=== PATIENT | female | born 1960 | race Caucasian/White ===

== ENCOUNTER → 2024-12-02 13:06 | Outpatient (REF) | payer BC, SELFPAY | LOC: RAD 13:06 | PROVIDERS: ATTENDING PHYSICIAN Surgery Vascular Surgery; FAMILY PHYSICIAN Family Medicine | DX: I77.1 Stricture of artery (principal) | CPT/HCPCS: 75635; Q9967 ==

== ENCOUNTER 2025-06-10 12:43 | Inpatient (IN) | payer BC, SELFPAY ==
[2025-06-02 10:22] VITALS: BMI 24.0
[2025-06-02 10:54] LABS: Hematocrit 42.7 % (37.0-47.0); Hemoglobin 14.4 g/dL (12.0-16.0); Mean Corp Hgb Conc. 33.7 g/dL (33.0-37.0); Mean Corpuscular Volume 96.2 fL (81.0-99.0); Nucleated Red Blood Cells % 0 %; Platelet Count 371 10^3/uL (130-400); Red Cell Dist. Width 11.9 % (11.5-14.5)
[2025-06-02 10:59] LABS: INR 1.09; PT 14.2 Sec (11.4-14.6)
[2025-06-02 11:00] LABS: APTT 33.8 Sec (23.4-35.0)
[2025-06-02 12:11] LABS: Blood Urea Nitrogen 10 mg/dl (7-17); Calcium 9.5 mg/dl (8.4-10.2); Carbon Dioxide 24 mmol/L (22-30); Chloride 104 mmol/L (98-107); Estimated Creatinine Clearance 84 ml/min; Glucose 106 mg/dl (70-99); Potassium 4.2 mmol/L (3.5-5.1); Sodium 136 mmol/L (135-145); eGFR > 60.00
[2025-06-10] VITALS (8 sets, daily range): BP systolic 98–160; BP diastolic 51–72; BMI 24.5
--- NOTE | 2025-06-10 08:14 | HP.FOC2 ---
Focused History & Physical
Chief Complaint
HPI:
Chief Complaint: Iliac artery stenosis, left
HPI / Indication for Planned Procedure: This is a 65-year-old female with significant past medical history for hypertension, coronary disease, peripheral arterial disease, and hyperlipidemia who presents to [facility] for
scheduled aortoiliac stent grafting with Dr. Francisco Miller III. Patient denies recent illness, trauma, or hospitalization. Denies fever, chills, cough, nausea, vomiting, abdominal pain, chest pain, or shortness of breath. Reports she is at her
baseline health. She was evaluated by her grain farmworker Dr. Gretchen Sosa on 04/30/2025 and was cleared as acceptable cardiovascular risk for this procedure.
Relevant Past Medical History: Other (hypertension, coronary disease, peripheral arterial disease, and hyperlipidemia)
Relevant Social History: Tobacco Use (Active smoker roughly 10 cigarettes/day)
Relevant Family History: Negative
Relevant Past Surgical History: Negative
Review of Systems
Review of Pertinent Systems: All Systems Negative
Medication
See Medication form for detailed medications: Yes
Medication List (including Herbals & OTC):
aspirin 81 mg tablet,delayed release 81 mg PO DAILY 05/30/25
atorvastatin 80 mg tablet 80 mg PO DAILY 05/30/25
diltiazem HCl 240 mg tablet,extended release 24 hr 240 mg PO DAILY 05/30/25
ezetimibe 10 mg tablet 10 mg PO DAILY 05/30/25
losartan 100 mg tablet 100 mg PO DAILY 05/30/25
nitroglycerin 0.4 mg sublingual tablet 0.4 mg sublingual Q5-15M PRN chest pain/angina 05/30/25
Medications Reviewed: Yes
Allergies and Reactions
Patient has Allergies: No
Noted Allergies and Reactions:
Allergy/AdvReac Type Severity Reaction Status Date / Time
No Known Allergies Allergy Verified 05/30/25 08:23
Pertinent Physical Exam
All Other Systems: Negative
Head/Neck: Normal
Lungs: Normal (Bilateral lungs clear to auscultation)
Heart: Normal (S1, S2, regular rate and rhythm, no murmur)
Abdomen: Normal (Nontender and nondistended)
Neurological: Normal
Diagnosis / Assessment
Assessment: 65-year-old female with significant aortoiliac arterial disease
Plan / Procedure
Plan: Will proceed with scheduled aortoiliac stenting with Dr. Francisco Miller III
Anesthesia/Sedation to be done by Anesthesia Provider: Yes
[2025-06-10] MEDS: NSS 500 IV (08:20)
[2025-06-10] MEDS: BACTROBAN NASAL 1 GRAM NASAL (08:20)
[2025-06-10] MEDS: PERIDEX 0.12% ORAL RINSE 15 ML PO (08:21)
--- NOTE | 2025-06-10 09:40 | W.SUR.PREOP ---
Pre-Operative Surgical Note
-
I have examined this patient prior to the performance of the scheduled procedure.
The patient's condition is unchanged from the time of the current History and
Physical and the patient is able to undergo the scheduled procedure.
[2025-06-10 11:28] LABS: ACT-LR - POC 218 Seconds (116-155)
[2025-06-10 11:38] LABS: ACT-LR - POC 263 Seconds (116-155)
[2025-06-10 11:48] LABS: ACT-LR - POC 271 Seconds (116-155)
[2025-06-10] MEDS: ZOFRAN 4 MG IV (12:38)
[2025-06-10 13:06] LABS: Hematocrit 34.9 % (37.0-47.0); Hemoglobin 11.4 g/dL (12.0-16.0); Mean Corp Hgb Conc. 32.7 g/dL (33.0-37.0); Mean Corpuscular Volume 101.5 fL (81.0-99.0); Platelet Count 265 10^3/uL (130-400); Red Cell Dist. Width 12.2 % (11.5-14.5)
--- NOTE | 2025-06-10 13:55 | PTCARENOTE ---
Received pt from PACU at 13:30. Pt aaox3, able to make needs known. B/L groin access sites intact with surgical glue. B/L pedal pulses present/palpable. BLLE warm with adequate capillary refill. NSR on monitor, HR 50-60s. R radial a-line in place,
BP stable. Orders to keep SBP within 100-165. Lungs clear, SaO2 98% on RA. Indwelling warner in place draining clear yellow urine. Orders to keep HOB flat for 2hr. Pt resting comfortably in bed at this time. VSS. Call raygoza and belongings within
reach. Care ongoing.
[2025-06-10] MEDS: NSS 1000 IV (13:56)
--- NOTE | 2025-06-10 15:16 | CON.INTV ---
Consultation
Consultation Request
Date/Time Consultation Requested: 06/10/2025
Date/Time Consultation Performed: 06/10/2024
Requesting Provider: Dr. Miller
Performing Provider: Dr. Sandeep Martinez
Reason for Consultation: Status post aortoiliac stent grafting
Medical History
-
History of Present Illness:
65-year-old woman with past medical history significant for hypertension, coronary disease, peripheral arterial disease, hyperlipidemia, admitted to the hospital to undergo aortoiliac stent grafting.
Procedure underwent without complications 06/10/2025.
Past Medical History
Past Medical History: Other (See assessment and plan)
Social History
Tobacco: Smoker (10 cigarettes/day)
Alcohol: None
Drug: None
Personal: Single
Family History
Family History: Reviewed & Not Pertinent
Allergies / Home Medications
Allergies
Allergy/AdvReac Type Severity Reaction Status Date / Time
No Known Allergies Allergy Verified 06/10/25 08:24
Home Medications
�Medication �Instructions �Recorded �Confirmed �Last Taken �Type
aspirin 81 mg tablet,delayed 81 mg PO DAILY 05/30/25 06/10/25 06/10/25 06:00 History
release
atorvastatin 80 mg tablet 80 mg PO DAILY 05/30/25 06/10/25 06/10/25 06:00 History
diltiazem HCl 240 mg 240 mg PO DAILY 05/30/25 06/10/25 06/10/25 06:00 History
tablet,extended release 24 hr
ezetimibe 10 mg tablet 10 mg PO DAILY 05/30/25 06/10/25 06/08/25 06:00 History
losartan 100 mg tablet 100 mg PO DAILY 05/30/25 06/10/25 06/09/25 06:00 History
nitroglycerin 0.4 mg sublingual 0.4 mg sublingual Q5-15M PRN chest 05/30/25 05/30/25 Unknown History
tablet pain/angina
Review of Systems
-
History Source: Patient
All other systems: Negative unless noted
Vitals / Labs / Diagnostic Testing
Vital Signs
Temp Pulse Resp BP Pulse Ox
97.9 F 59 13 104/51 98
06/10/25 13:00 06/10/25 13:15 06/10/25 13:15 06/10/25 13:15 06/10/25 13:15
Lab Data
06/10/25 12:41
Diagnostic Testing:
Physical Exam
-
HEENT: Normocephalic
Cardiovascular: S1/S2
Respiratory: Non-Labored Respirations
GI: Soft and Non Distended
Neurology: Awake
Skin: Warm and Other (Peripheral pulses present. Lower extremity are warm.)
General: Respiratory Distress
Assessment
-
Status post aortoiliac stent grafting with Dr. Francisco Miller III-06/10/2025
Conditions present prior admission:
Tobacco abuse 10 cigarettes/day
Hypertension
Hyperlipidemia
History of coronary artery disease
History of peripheral arterial disease
Assessment and plan:
Postoperative surgical intensive care unit monitoring
Supplemental oxygen as needed
Incentive spirometry
Aspiration precautions
Chest x-ray 06/02/2025: Reviewed showed clear lungs.
Neuro and vascular checks per protocol
Vascular surgery following-correspondence and operative notes reviewed
Monitor blood pressure
Follow hemoglobin
Follow blood sugars
Insulin supplementation as needed
Smoking cessation was encouraged.
Monitor hypercalcemia
DVT prophylaxis
Early nutrition
Early mobilization
[2025-06-10 15:36] LABS: Blood Urea Nitrogen 8 mg/dl (7-17); Calcium 8.2 mg/dl (8.4-10.2); Carbon Dioxide 21 mmol/L (22-30); Chloride 108 mmol/L (98-107); Estimated Creatinine Clearance 82 ml/min; Glucose 114 mg/dl (70-99); Potassium 4.3 mmol/L (3.5-5.1); Sodium 135 mmol/L (135-145); eGFR > 60.00
--- NOTE | 2025-06-10 16:01 | OR.RPT ---
Operative Report
Operative Report
Date of Operation: 06/10/2025
Pre Op Diagnosis: Debilitating lower extremity claudication with extensive calcified aortoiliac occlusive disease
Post Op Diagnosis: Debilitating lower extremity claudication with extensive calcified aortoiliac occlusive disease
Procedure:
1. Intravascular lithotripsy to left common iliac artery occlusion (9 mm x 30 mm L6 Shockwave)
2. Aortoiliac stent grafting using AFX 2 unit body device (22�40/13�40)
3. Balloon angioplasty and stenting of left common iliac artery (9 mm x 59 mm Edmond VBX)
4. Introduce wire/catheter into aorta from bilateral femoral artery access
5. Ultrasound-guided percutaneous access to the bilateral common femoral arteries
6. Bilateral Pro-glide femoral artery closure
Surgeon: Francisco Miller III, MD
Anesthesia: General
Complications: None
Estimated Blood Loss: 50 cc
History and Indications for Procedure: 65-year-old female with significant calcified aortoiliac occlusive disease and debilitating lower extremity claudication.
Procedure in Detail: Iraida Caicedo was correctly identified and placed supine on the operating table. After adequate induction of anesthesia the abdomen, pelvis and bilateral groins were positioned, prepped and draped in the usual sterile
fashion. Preoperative antibiotics were administered. A time out procedure was performed with the nursing and anesthesia staff confirming the patients identity as well as the nature and laterality of the procedure.
Under ultrasound guidance, bilateral femoral artery sheath access was obtained. The arteries were patent bilaterally. A pre-close technique was performed on the right femoral artery access with 2 offset Proglide closure devices. The sutures were
secured and tucked under surgical towels for use at the end of the case. An 8 Fr sheath was placed into the right femoral access. A 7 Fr sheath was placed into the left femoral access. The patient was systemically heparinized.
From the right femoral access a KMP catheter and Bentson wire were advanced to the proximal descending thoracic aorta. The wire was exchanged out through the KMP catheter for a Lunderquist wire. Retrograde iliac arteriograms were performed
bilaterally to visualize the aortic bifurcation and calcified left common iliac artery disease. There was an occlusive lesion in the left common iliac artery that was heavily calcified. Using a Quickcross catheter and Glidewire retrograde from the
left femoral sheath I was able to cross the left common iliac artery occlusion and advance into the abdominal aorta. I then exchanged out for a V18 wire.
Due to the heavily calcified nature of the left common iliac artery disease and in an effort to modify the calcium to achieve maximum luminal gain with endovascular intervention I elected to proceed with intravascular lithotripsy. A 9 mm x 30 mm L6
shockwave balloon was placed across the stenosis under roadmap guidance. Alternating rounds of lithotripsy pulse delivery at sub-nominal pressure and angioplasty at nominal pressure was performed across the stenosis. In between rounds of pulse
delivery and angioplasty the balloon was deflated and repositioned under roadmap guidance. All the pulses were delivered. The balloon was then removed over the wire.
Over the Lunderquist wire in the right femoral access I placed the AFX introducer sheath and advanced the radio-opaque sheath tip to the abdominal aorta. An En-Snare catheter was placed over the V18 wire from the left femoral access and advanced to
the aortic bifurcation. The En-Snare was then advanced through to the catheter tip.
The contralateral limb wire of the AFX2 main body was introduced through the introducer sheath and advanced to the aortic bifurcation. The 22-40/13-40 AFX2 bifurcated main body was then loaded onto the Lunderquist wire and advanced through the
introducer sheath. The wire was snared from the contralateral side and pulled out the left femoral access and the AFX2 main body was advanced until the limbs were above the aortic bifurcation. The entire system was then pulled down onto the aortic
bifurcation. The main body was then deployed by pulling the control cord.
The contralateral limb was then deployed by pulling the yellow limb cover. Once this was completed I advanced a pigtail catheter over the contralateral limb wire until the tip was in contact with the wire lock. The contralateral limb was then pulled
as I advanced the pigtail up to release it from the wire lock. The wire was removed and the formed pigtail catheter was then advanced proximally. I then placed a Storq wire through the pigtail catheter. I used a 10 mm angioplasty balloon on the
left iliac limb to open the limb after initial deployment.
The ipsilateral limb was deployed by pinning the inner core and retracting the AFX introducer sheath. A Coda balloon was introduced on the right and used to profile the aortic main body as well as the right iliac limb. Kissing balloon angioplasty
was performed with the Coda balloon on the right and the 10 mm angioplasty balloon on the left.
A completion aortogram demonstrated an excellent technical result. The AFX device was widely patent. There was brisk flow through the stent and iliac limbs. The iliac bifurcations were preserved bilaterally. There was some residual stenosis from
extrinsic calcium in the midportion of the left iliac limb. Additional disease was identified in the distal [place] left common iliac artery. I then treated this with a 9 mm x 59 mm Edmond VBX stent. This was positioned in the desired location under
roadmap guidance to reline and provide additional support to the left iliac limb as well as treat the distal [place] left common iliac artery disease. A stent was deployed by inflating the balloon to nominal pressure. The balloon was then deflated
and removed over the wire. Subsequent aortoiliac arteriogram demonstrated an excellent technical result with a widely patent stent and no residual stenosis identified.
Satisfied with this result we then concluded the procedure. The Pro-glide sutures on the right were secured bilaterally after removing the sheath and wire. Protamine was administered. A single Pro-glide device was used to obtain hemostasis in the
left femoral artery access site following removal of the sheath. Additional pressure was applied to the puncture sites bilaterally for 5 minutes. Complete hemostasis was achieved bilaterally.
Sterile dressings were applied.
The patient tolerated the procedure well and was taken to the PACU in stable condition.
Signed:
Francisco Miller III, MD
Vascular Surgery
[facility]
[2025-06-10] MEDS: NICODERM TRANSDERMAL 14 MG TRANSDERM (17:08)
--- NOTE | 2025-06-10 17:33 | PTCARENOTE ---
Assessment unchanged. Order for cholesterol lowering diet placed. Patient consumed 100% of dinner. No c/o pain. B/L groin access sites remain intact. Pedal pulses palpable. Lower extremities warm with adequate capillary refill. VSS. Care ongoing.
[2025-06-10] MEDS: HEPARIN 5000 UNITS SC (19:56)
--- NOTE | 2025-06-10 20:00 | PTCARENOTE ---
Pt received awake alert and oriented. L radial a-line intact with good waveform and is compatible with non invasive BP. Groin sites clean dry and intact. Pedal pulses palpable bilat. Assessment as charted.
[2025-06-11] MEDS: NSS 1000 IV (01:36)
[2025-06-11 04:13] VITALS: BP 108/61
--- NOTE | 2025-06-11 04:21 | PTCARENOTE ---
Pt slept at intervals. Assessment unchanged.
[2025-06-11 04:36] LABS: Hematocrit 32.4 % (37.0-47.0); Hemoglobin 11.0 g/dL (12.0-16.0); Mean Corp Hgb Conc. 34.0 g/dL (33.0-37.0); Mean Corpuscular Volume 95.3 fL (81.0-99.0); Platelet Count 260 10^3/uL (130-400); Red Cell Dist. Width 12.2 % (11.5-14.5)
[2025-06-11 04:50] LABS: INR 1.06; PT 13.9 Sec (11.4-14.6)
[2025-06-11 04:51] LABS: APTT 31.7 Sec (23.4-35.0)
[2025-06-11 05:03] LABS: Blood Urea Nitrogen 8 mg/dl (7-17); Calcium 8.3 mg/dl (8.4-10.2); Carbon Dioxide 22 mmol/L (22-30); Chloride 111 mmol/L (98-107); Estimated Creatinine Clearance 82 ml/min; Glucose 109 mg/dl (70-99); Magnesium 1.9 mg/dl (1.6-2.3); Potassium 4.2 mmol/L (3.5-5.1); Sodium 135 mmol/L (135-145); eGFR > 60.00
--- NOTE | 2025-06-11 08:03 | W.PN.VS ---
Addendum entered and electronically signed by Francisco Warner III, MD 06/11/25 08:23:
This patient was seen and examined in collaboration with MACIEJ Costa. I agree with the history and physical exam as well as the assessment and plan. I have the following additions:
Eating breakfast
Doing very well and is without complaints
Groin puncture sites clean/dry/soft
Palpable pedal pulses bilat
Progress as detailed
Perhaps home later today
Signed:
Francisco Warner III, MD
Vascular Surgery
[facility]
Original Note:
Today's Communication / Plan
-
Patient seen and examined at bedside with Dr. Francisco Warner III, below plan reviewed with attending.
Assessment/Plan
-
Assessment: 65 year old female POD#1 Aortoiliac stent grafting
Plan:
Discontinue IV fluids
Discontinue arterial line
Discontinue warner catheter
OOB to chair with progression to ambulation as tolerated
Continue ASA 81mg PO daily and statin therapy
Encouraged smoking cessation
Possible discharge this afternoon pending patient progression
Subjective Data
-
Date of Service: June 11, 2025
Patient seen and examined at bedside, offers no complaints. Denies nausea, vomiting, fever, and chills. Denies pain.
Objective Data
-
Vital Signs
Temp Pulse Resp BP Pulse Ox
98.3 F 71 22 108/61 96
06/11/25 03:32 06/11/25 06:00 06/11/25 06:00 06/11/25 04:13 06/11/25 06:00
Intake and Output
06/10/25 06/11/25 06/12/25
06:59 06:59 06:59
Intake Total 1600 / 1600
Output Total 1205 / 1205
Balance 395 / 395
Intake:
Oral fluids 300 / 300
IV fluids (Total) 1300 / 1300
Normosol 500 / 500
Nss 1,000 ml @ 80 mls/hr IV . 800 / 800
[id number] [facility] Rx#:[id number]
Output:
Urine, Warner 1205 / 1205
Lab Results
06/11/25 04:12
06/11/25 04:12
Calcium 8.3 mg/dl (8.4-10.2) L 06/11/25 04:12
Phosphorus 3.8 mg/dl (2.5-4.5) 06/11/25 04:12
Magnesium 1.9 mg/dl (1.6-2.3) 06/11/25 04:12
Physical Exam
-
No apparent distress, resting in bed comfortably
No tachycardia
No dyspnea on room air
ABD flat, non-tender, non-distended
BL groin sites flat, exofin glue intact, no evidence of hematoma
BL feet warm, BL DP +2 palpable
Warner draining clear yellow urine
[2025-06-11 09:17] VITALS: BP 120/62
[2025-06-11] MEDS: COZAAR 100 MG PO (09:25)
[2025-06-11] MEDS: NICODERM TRANSDERMAL 14 MG TRANSDERM (09:25)
[2025-06-11] MEDS: ZETIA 10 MG PO (09:25)
[2025-06-11] MEDS: ASPIR LOW (ENTERIC COATED) 81 MG PO (09:25)
[2025-06-11] MEDS: LIPITOR 80 MG PO (09:25)
[2025-06-11] MEDS: HEPARIN 5000 UNITS SC (09:26)
[2025-06-11] MEDS: CARDIZEM CD 240 MG PO (09:26)
--- NOTE | 2025-06-11 09:54 | PTCARENOTE ---
AAO x 3; Denies pain. RT Radial A-line removed; Indwelling Miller removed. BP 120/62 MAP 74 Normal Sinus Rhythm 90's Patient ambulates in a room
At this time OOB chair. call raygoza within reach
[2025-06-11 11:25] VITALS: BP 101/39
--- NOTE | 2025-06-11 11:34 | W.PN.INTV ---
Today's Communication / Plan
Recommendations
Continue routine postoperative care
Smoking cessation was encouraged.
Hopefully discharge planning
Assessment
-
Status post aortoiliac stent grafting with Dr. Francisco Miller III-06/10/2025
Conditions present prior admission:
Tobacco abuse 10 cigarettes/day
Hypertension
Hyperlipidemia
History of coronary artery disease
History of peripheral arterial disease
Assessment and plan:
Postoperative day 1
Hemodynamically stable
Neurologically intact
Puncture site intact without hematoma
Sitting out of bed and eating breakfast
-
Continue routine postoperative care
Increase mobility
Arterial line has been discontinued
Vascular correspondence reviewed-possible discharge later today.
Continue outpatient medication
Incentive spirometry-encourage
Smoking cessation was encouraged.
DVT prophylaxis
-
Hopefully discharge planning later if stable.
Patient is discharged critical care team will sign off
If patient stays in the hospital can transfer to [facility].
Subjective Dataa
Subjective Data
Date of Service:
Date of Service: June 11, 2025
Chief Complaint: Materials Associate Follow Up (Status post aortoiliac stent graft)
Subjective:
Doing well
Eating breakfast independently
Out of bed
Denies any significant discomfort or pain
Review of Systems
Cardiopulmonary: Dyspnea (none at rest)
GI: Abdominal Pain (n)
Objective Data
Data Reviewed
Vital Signs / I&O / Oxygen:
Vital Signs
Temp Pulse Resp BP Pulse Ox
98.5 F 71 22 108/61 96
06/11/25 06:00 06/11/25 06:00 06/11/25 06:00 06/11/25 04:13 06/11/25 06:00
Intake and Output
06/10/25 06/11/25 06/12/25
06:59 06:59 06:59
Intake Total 1839 / 184
Output Total 1555 / 1555
Balance 285 / 285
SaO2 96
Nasal Cannula flow liters per 2
minute
Physical Exam
General: Comfortable
HEENT: Normocephalic
Cardiovascular: S1-S2
Respiratory: Clear and Non-Labored Respirations
GI: Soft and Non Distended
Neurology: Awake, Oriented and No Motor Deficits
Skin: Other and Other (Puncture site intact without hematoma per)
Labs/Micro/Reports
Lab Data
06/11/25 04:12
06/11/25 04:12
Laboratory Results
06/11/25
04:12
PT 13.9
INR 1.06
APTT 31.7
--- NOTE | 2025-06-11 11:34 | CM ---
Chart reviewed. Spoke with pt at ICU
She lives with son in [place]
Independent
Working multimedia manager at [employer]
no DME
PCP Carmen Desai
[facility] in [place]
no hx of VN nor SNF
DCP is to go home today no needs
Son is picking her up today
--- NOTE | 2025-06-11 11:38 | PTCARENOTE ---
patient ambulates around unit with no difficulties. Pedal pulses present to palpation BP 101/39 . Normal Sinus Rhythm
--- NOTE | 2025-06-11 13:30 | PTCARENOTE ---
patient discharge home. Transportation provided by pt's son. peripheral lines RT and Left Removed. RT A-line dressing intact, dry. Vital sign stable. Pedal pulses b/l present . All discharge instructions, medications and follow-up appointment
provided to patient.
--- NOTE | 2025-06-11 13:35 | W.PN.SURGUPD ---
Surgical Update
Surgical Update
To [employer]:
Mrs. Caicedo required an extensive vascular procedure involving intravascular lithotripsy combined with aorto-iliac stent grafting on 06/10/25 for debilitating claudication and severe calcified aorto-iliac occlusive disease. I made the decision as
her treating surgeon to admit her to the hospital post-operatively and monitor her in an ICU setting for blood pressure observation via radial arterial line, urine output monitoring via Miller catheter and for frequent/regular neurovascular checks.
None of this could be possible in another area of [facility] and I did not feel comfortable sending her home following the surgery.
Please don't deny the admission for Mrs. Caicedo. Keeping her in the hospital after this procedure was the right thing to do.
Respectfully,
Francisco Miller III, MD
Vascular Surgery
== END 2025-06-11 13:00 | disposition home or self-care (01) | DRG 269 ==
LOC: ICU 12:43
PROVIDERS: Nurse Practitioner; ADMITTING PHYSICIAN Surgery Vascular Surgery; CONSULT PHYSICIAN Internal Medicine Critical Care Medicine; PRIMARYCARE PHYSICIAN Family Medicine
PROC: 047D34Z Dilation of Left Common Iliac Artery with Drug-eluting Intraluminal Device, Percutaneous Approach (ICD-10-PCS; 2025-06-10)
PROC: 04U Lower Arteries, Supplement (ICD-10-PCS; 2025-06-10)
PROC: 04U03JZ Supplement Abdominal Aorta with Synthetic Substitute, Percutaneous Approach (ICD-10-PCS; 2025-06-10)
PROC: 04UD3JZ Supplement Left Common Iliac Artery with Synthetic Substitute, Percutaneous Approach (ICD-10-PCS; 2025-06-10)
PROC: 04FD3ZZ Fragmentation of Left Common Iliac Artery, Percutaneous Approach (ICD-10-PCS; 2025-06-10)
DX: I74.5 Embolism and thrombosis of iliac artery (principal); I73.9 Peripheral vascular disease, unspecified; I10 Essential (primary) hypertension; E78.5 Hyperlipidemia, unspecified; F17.210 Nicotine dependence, cigarettes, uncomplicated; I25.119 Atherosclerotic heart disease of native coronary artery with unspecified angina pectoris; E83.52 Hypercalcemia; Z79.899 Other long term (current) drug therapy
CPT/HCPCS: 36415; 71046; 80048; 83735; 84100; 85025; 85027; 85610; 85730; 93005; C1725; C1760; C1769; C1773; C1894; C2628; C9765; Q9967